=== PATIENT | female | born 1970 | race Caucasian/White ===

== ENCOUNTER 2017-03-05 15:46 | Outpatient (CLI) | payer OTHER ==
[2012-10-07 13:41] VITALS: BP 128/74
[2017-03-05 16:42] LABS: eGFR (African) > 60; eGFR (Non-African) > 60
== END 2017-03-05 15:47 ==
LOC: LAB 15:46
PROVIDERS: ATTEND Family Medicine
DX: E11.9 Type 2 diabetes mellitus without complications (principal); E03.9 Hypothyroidism, unspecified
CPT/HCPCS: 36415; 80048; 80061; 83036; 84443

== ENCOUNTER 2017-05-20 15:44 | Outpatient (CLI) | payer OTHER ==
[2012-10-07 13:41] VITALS: BP 128/74
== END 2017-05-20 15:45 ==
LOC: LAB 15:44
PROVIDERS: ATTEND Family Medicine
DX: E03.9 Hypothyroidism, unspecified (principal)
CPT/HCPCS: 36415; 84443

== ENCOUNTER 2017-08-19 01:03 | Emergency (ER) | payer OTHER ==
[2017-08-19 01:26] VITALS: BP 116/72
[2017-08-19] MEDS ORDERED: CIPROFLOXACIN HCL 500 MG TABLET PO ONE (01:28)
[2017-08-19] MEDS ORDERED: PHENAZOPYRIDINE HCL 200 MG TABLET PO ONE (01:29)
--- NOTE | 2017-08-19 01:39 | ED Physician Documentation ---
Abdominal Pain - HISTORIAN Historian: patient, friend - [facility] Stated Complaint: Abd Pain/Painful Urination Chief Complaint: Female Urogenital Problems Additonal Information: AWOKE W SIG SUPRAPUBIC AND GENL ABDOMINAL PAIN W/ UA URGENCY AND DYSUTIA-SOME CHILLS Onset: hours (55019), days ago Duration: constant Timing: still present Context: denies: out of country travel, bad food, recent trauma Severity: moderate Quality: pain, burning, cramping, sharp Associated Symptoms: chills, nausea. denies: vomiting Exacerbated by: nothing Relieved by: nothing - ROS CONST: no problems. denies: recent illness GI/: dark urine. denies: bloody urine CVS/RESP: none EYES/ENT: none. denies: problems with vision MS/SKIN/LYMPH: none. denies: joint pain, leg swelling NEURO/PSYCH: none. denies: headache, dizziness, light-headedness - SOCIAL HX Smoking History: non-smoker Alcohol Use: none Drug Use: none - FAMILY HX Family History: no significant history - PAST HX Past History: other (HYPO THRYOID ) Home Medications: Ambulatory Orders Medication Instructions Recorded Ciprofloxacin HCl [Cipro] 500 mg PO BID #14 tablet 08/19/17 Levothyroxine Sodium [Unithroid] 100 mcg PO DAILY 08/19/17 Phenazopyridine HCl [Pyridium] 200 mg PO TID #30 tablet 08/19/17 Venlafaxine HCl [Effexor Xr] 75 mg PO DAILY 08/19/17 Allergies/Adverse Reactions: Allergies Allergy/AdvReac Type Severity Reaction Status Date / Time Penicillins Allergy Intermediate Verified 10/07/12 12:28 - VITAL SIGNS Vital Signs: Vital Signs Temp Pulse Resp BP Pulse Ox 97.1 F L 95 H 18 116/72 99 08/19/17 01:05 08/19/17 01:05 08/19/17 01:05 08/19/17 01:05 08/19/17 01:05 - REVIEWED ASSESSMENTS Nursing Assessment Reviewed: Yes Vitals Reviewed: Yes ED Results Lab/Radiology - Orders Orders: ED Orders Category Date Time Status UA [URINALYSIS] Routine Lab 08/19/17 Ordered Ciprofloxacin HCl [Cipro] Med 08/19/17 01:28 Once 500 mg PO NOW ONE Phenazopyridine HCl [Pyridium] Med 08/19/17 01:29 Once 200 mg PO NOW ONE Abdominal Pain Physical Exam - Physical Exam General Appearance: moderate distress EENT: eye inspection normal NECK: normal inspection RESPIRATORY: no resp distress, breath sounds normal CVS: reg rate & rhythm, heart sounds normal ABDOMEN: soft, non-tender (SHANNON SUPRAPUBIC SLIGHT GUARDING) EXTREMITIES: non-tender, normal range of motion, no evidence of injury, no edema NEURO: oriented X3, motor nml, sensation nml, mood/affect nml Vital Signs: Vital Signs Temp Pulse Resp BP Pulse Ox 97.1 F L 95 H 18 116/72 99 08/19/17 01:05 08/19/17 01:05 08/19/17 01:05 08/19/17 01:05 08/19/17 01:05 Discharge Clincal Impression: Acute urinary tract infection Prescriptions: Ciprofloxacin HCl [Cipro] 500 mg PO BID #14 tablet Phenazopyridine HCl [Pyridium] 200 mg PO TID #30 tablet Referrals: Devaughn Ayala MD [Primary Care Provider] - 2 Days Comments: INCREASE WATER--PYRIDIUM WILL TURN URINE ORANGE Condition: Good Disposition: 01 HOME, SELF-CARE Decision to Admit: NO Decision Time: 01:44
[2017-08-19 09:15] LABS: APPEARANCE,URINE CLOUDY (CLEAR); COLOR,URINE YELLOW (YELLOW); OCCULT BLOOD,URINE NEGATIVE (NEGATIVE); UROBILINOGEN URINE 0.2 Eu (0.2-1.0)
== END 2017-08-19 01:38 | disposition home or self-care (01) ==
LOC: ED 01:03
DX: N39.0 Urinary tract infection, site not specified (principal)
CPT/HCPCS: 81002; 87086; 99282; 99283